=== PATIENT | female | born 1990 | race Hispanic/Latino ===

== ENCOUNTER 2019-10-05 18:01 | Emergency (ER) | payer MEDICAID, OTHER ==
[~2019-10-05 18:01] MED LIST: DOCU-116 PO; IBUP-2077 PO; IRON-6 PO
== END 2019-10-05 18:38 | disposition home or self-care (01) ==
LOC: EDH 18:01
DX: F41.1 Generalized anxiety disorder (principal)
CPT/HCPCS: 99281

== ENCOUNTER 2022-04-26 15:45 | Observation (INO) | payer MEDICAID ==
[~2022-04-26] VITALS: Ht 162.6 cm; Wt 88.0 kg
[2022-04-26 15:48] VITALS: BP 89/150
[2022-04-26 16:17] LABS: APPEARANCE,URINE Cloudy (CLEAR); BILIRUBIN,URINE Negative (NEGATIVE); COLOR,URINE Yellow (YELLOW); GLUCOSE, URINE (UA) Negative (NEGATIVE); KETONES,URINE Trace mg/dL (NEGATIVE); LEUKOCYTE ESTERASE ,URINE Negative (NEGATIVE); NITRATE,URINE Negative (NEGATIVE); OCCULT BLOOD,URINE Negative (NEGATIVE); PROTEIN,URINE Trace mg/dL (NEGATIVE)
[2022-04-26 16:37] LABS: BACTERIA,URINE Moderate /HPF (None Seen); MUCUS,URINE Moderate LPF (None Seen); RBC,URINE None Seen /HPF (0-1); WBC,URINE 0-1 /HPF (0-1)
== END 2022-04-26 17:20 | disposition home or self-care (01) ==
LOC: EDH 15:45 → LDH 15:46
PROVIDERS: ADMIT Obstetrics & Gynecology; ATTEND Obstetrics & Gynecology
DX: O62.9 Abnormality of forces of labor, unspecified (principal); O36.8130 Decreased fetal movements, third trimester, not applicable or unspecified; Z3A.37 37 weeks gestation of pregnancy; Z79.899 Other long term (current) drug therapy
CPT/HCPCS: 59025; 81001; 87088; G0378; G0379

== ENCOUNTER 2022-04-30 19:50 | Inpatient (IN) | payer MEDICAID ==
[~2022-04-30] VITALS: Ht 172.7 cm; Wt 89.4 kg
[2022-04-30 20:47] LABS: APPEARANCE,URINE Clear (CLEAR); BILIRUBIN,URINE Negative (NEGATIVE); COLOR,URINE Yellow (YELLOW); GLUCOSE, URINE (UA) Negative (NEGATIVE); KETONES,URINE Negative (NEGATIVE); LEUKOCYTE ESTERASE ,URINE Negative (NEGATIVE); NITRATE,URINE Negative (NEGATIVE); OCCULT BLOOD,URINE Negative (NEGATIVE); PH,URINE 6.5 (5.0-8.0); PROTEIN,URINE Negative (NEGATIVE); UROBILINOGEN,URINE 0.2 mg/dL (0.2-1.0)
[2022-04-30 20:56] LABS: AMPHET/METH SCREEN,URINE NEGATIVE (NEGATIVE); BARBITURATE SCREEN, URINE NEGATIVE (NEGATIVE); BENZODIAZEPINES SCREEN,URINE NEGATIVE (NEGATIVE); CANNABINOID SCREEN,URINE NEGATIVE (NEGATIVE); COCAINE SCREEN,URINE NEGATIVE (NEGATIVE); OPIATE SCREEN,URINE NEGATIVE (NEGATIVE); PHENCYCLIDINE SCREEN,URINE NEGATIVE (NEGATIVE)
[2022-04-30 21:00] VITALS: BP 130/78
[2022-04-30 21:16] LABS: HEMATOCRIT 32.4 % (36-48); MEAN CORPUSCULAR HEMOGLOBIN 26.3 pg (27.0-33.0); MEAN CORPUSCULAR HGB CONC 32.4 g/dL (32.0-36.0); RED CELL DISTRIBUTION WIDTH 13.8 % (11.0-15.5); WHITE BLOOD COUNT (AUTO) 11.5 K/uL (4.8-10.8)
[2022-04-30] MEDS: LACTATED RINGERS 1000ML 1,000 ML IV PRN (21:19)
[2022-04-30] MEDS ORDERED: AMPICILLIN 2GM+NS 100ML 100 ML IV SCH (21:30)
[2022-05-01] MEDS ORDERED: OXYTOCIN-LR 20 UNITS/1000 ML 1,000 ML IV SCH ×2 (00:30→05:00)
[2022-05-01] MEDS: LACTATED RINGERS 1000ML 1,000 ML IV PRN (01:24)
[2022-05-01] MEDS ORDERED: AMPICILLIN 1GM+NS 50ML 50 ML IV SCH (01:30)
[2022-05-01] MEDS ORDERED: BUTORPHANOL TARTRATE 2 MG/ML IVP PRN (01:30)
[2022-05-01] MEDS ORDERED: LIDOCAINE HCL 1% 20 ML VIAL ONE (01:55)
[2022-05-01] MEDS ORDERED: ACETAMINOPHEN WITH CODEINE 1 TAB TAB PO PRN (05:00)
[2022-05-01] MEDS ORDERED: ACETAMINOPHEN 325 MG TAB PO PRN (05:00)
[2022-05-01] MEDS ORDERED: WITCH HAZEL 1 PAD TP PRN (05:00)
[2022-05-01] MEDS ORDERED: MEASLES/MUMPS/RUBELLA VACCINE, LIVE 0.5 ML/VIAL SQ PRN (05:00)
[2022-05-01] MEDS ORDERED: DIPH,PERTUSS(ACELL),TET VAC/PF 0.5 ML VIAL IM PRN (05:00)
[2022-05-01] MEDS ORDERED: BENZOCAINE/LANOLIN/ALOE VERA 60 ML AEROSOL TP PRN (05:00)
[2022-05-01] MEDS ORDERED: LANOLIN 30GM OINTMENT TP PRN (05:00)
[2022-05-01] MEDS: IBUPROFEN 600 MG TABLET PO PRN (06:30)
[2022-05-01 07:40] VITALS: BP 115/56
[2022-05-01] MEDS: DOCUSATE SODIUM 100 MG CAP PO SCH ×2 (08:44→21:30)
[2022-05-01 09:41] LABS: RAPID PLASMA REAGIN NONREACTIVE (NONREACTIVE)
[2022-05-01 11:45] VITALS: BP 118/63
[2022-05-01 15:32] VITALS: BP 104/55
[2022-05-01 19:14] VITALS: BP 113/70
[2022-05-01 22:58] VITALS: BP 125/82
[2022-05-01] MEDS ORDERED: FERR-82 PO (22:58)
[2022-05-01] MEDS ORDERED: PREN1COM14 PO (22:58)
[2022-05-01] MEDS ORDERED: LEVO25CA4 PO (22:58)
[2022-05-02 03:10] VITALS: BP 124/82
[2022-05-02] MEDS: IBUPROFEN 600 MG TABLET PO PRN ×2 (03:25→10:04)
[2022-05-02 06:51] LABS: HEMATOCRIT 28.4 % (36-48); MEAN CORPUSCULAR HEMOGLOBIN 26.6 pg (27.0-33.0); MEAN CORPUSCULAR HGB CONC 32.7 g/dL (32.0-36.0); MEAN CORPUSCULAR VOLUME 81.1 fL (79-99); RED BLOOD CELL COUNT(AUTO) 3.5 MIL/uL (4.00-5.50); RED CELL DISTRIBUTION WIDTH 14.3 % (11.0-15.5); WHITE BLOOD COUNT (AUTO) 10.8 K/uL (4.8-10.8)
[2022-05-02 07:30] VITALS: BP 113/71
[2022-05-02] MEDS: DOCUSATE SODIUM 100 MG CAP PO SCH (10:02)
[2022-05-02] MEDS ORDERED: IBUP-2070 PO (10:30)
[2022-05-02 11:15] VITALS: BP 116/80
== END 2022-05-02 12:30 | disposition home or self-care (01) | DRG 560 ==
LOC: EDH 19:50 → OBSVTOIN 19:51 → LDH 19:51 → WSH 05-01 05:00
PROVIDERS: ADMIT Obstetrics & Gynecology; ATTEND Obstetrics & Gynecology
PROC: 10E0XZZ Delivery of Products of Conception, External Approach (ICD-10-PCS; principal; 2022-05-01)
DX: O80 Encounter for full-term uncomplicated delivery (principal); Z37.0 Single live birth; Z3A.38 38 weeks gestation of pregnancy
CPT/HCPCS: 36415; 59025; 80305; 81001; 81003; 85027; 86592; 86701; 86850; 86900; 86901; 87088; 87340; 87390; 96360; 96361; G0378; G0379; J0290; J0595; J2590; J7120

== ENCOUNTER 2024-01-14 17:57 | Emergency (ER) | payer BC, MEDICAID ==
[~2024-01-14] VITALS: Ht 162.6 cm; Wt 77.1 kg
[~2024-01-14 17:57] MED LIST changes: -DOCU-116 PO; +FERR-82 PO; +IBUP-2070 PO; -IBUP-2077 PO; -IRON-6 PO; +LEVO25CA4 PO; +PREN1COM14 PO
[2024-01-14 18:12] VITALS: BP 121/81; PULSE 85; RESP 14; O2SAT 100
[2024-01-14] MEDS: IBUPROFEN 800 MG TAB PO ONE (19:50)
[2024-01-14] MEDS ORDERED: IBUP-2070 PO (19:52)
== END 2024-01-14 20:00 | disposition home or self-care (01) ==
LOC: EDH 17:57
DX: M76.62 Achilles tendinitis, left leg (principal)
CPT/HCPCS: 73610

== ENCOUNTER 2024-10-26 20:54 | Emergency (ER) | payer BC ==
[~2024-10-26] VITALS: Ht 162.6 cm; Wt 81.2 kg
[2024-10-26 21:28] LABS: BASOPHILS # (AUTO) 0.07 K/uL (0.00-0.20); BASOPHILS % (AUTO) 0.5 % (0.0-5.0); EOSINOPHILS # (AUTO) 0.07 K/uL (0.00-0.70); EOSINOPHILS % (AUTO) 0.5 % (0.0-8.0); HEMATOCRIT 37.8 % (36-48); IMMATURE GRANULOCYTE ABSOLUTE 0.06 K/uL (0-1); LYMPHOCYTES # (AUTO) 3.1 K/uL (1.0-4.8); LYMPHOCYTES % (AUTO) 22.3 % (21.0-51.0); MEAN CORPUSCULAR HEMOGLOBIN 25.8 pg (27.0-33.0); MEAN CORPUSCULAR HGB CONC 32.5 g/dL (32.0-36.0); MEAN CORPUSCULAR VOLUME 79.4 fL (79-99); MONOCYTES # (AUTO) 0.8 K/uL (0.1-1.0); MONOCYTES % (AUTO) 5.5 % (3.0-13.0); NEUTROPHILS # (AUTO) 9.8 K/uL (1.8-7.7); NEUTROPHILS % (AUTO) 70.8 % (40.0-77.0); PLATELET COUNT (AUTO) 434 K/uL (130-400); RED BLOOD CELL COUNT(AUTO) 4.76 MIL/uL (4.00-5.50); RED CELL DISTRIBUTION WIDTH 14.1 % (11.0-15.5); WHITE BLOOD COUNT (AUTO) 13.8 K/uL (4.8-10.8)
[2024-10-26 21:36] LABS: APPEARANCE,URINE CLEAR (CLEAR); BILIRUBIN,URINE NEGATIVE (NEGATIVE); COLOR,URINE LIGHT-YELLOW (YELLOW); GLUCOSE, URINE (UA) NEGATIVE (NEGATIVE); KETONES,URINE NEGATIVE (NEGATIVE); LEUKOCYTE ESTERASE ,URINE NEGATIVE Leu/uL (NEGATIVE); MUCUS,URINE RARE LPF (None Seen); NITRATE,URINE NEGATIVE (NEGATIVE); OCCULT BLOOD,URINE SMALL (NEGATIVE); PROTEIN,URINE 10 mg/dL (NEGATIVE); SQUAMOUS EPITHELIAL CELL,UR FEW /HPF (0-2); UROBILINOGEN,URINE 0.2 mg/dL (0.2-1.0); WBC,URINE 0-1 /HPF (0-1)
[2024-10-26 21:39] LABS: HCG,QUALITATIVE URINE NEGATIVE (NEGATIVE)
[2024-10-26 21:40] LABS: CREATININE 0.8 mg/dL (0.5-1.0); POTASSIUM 3.6 mmol/L (3.5-5.1)
[2024-10-26 22:00] LABS: RAPID GROUP A STREP negative (NEGATIVE); SARS-CoV-2, RNA, NAAT NEGATIVE SARS CoV-2 (NEGATIVE)
[2024-10-26 22:06] LABS: INFLUENZA TYPE A Negative For Type A (NEGATIVE); INFLUENZA TYPE B Negative For Type B (NEGATIVE)
[2024-10-26] MEDS: 0.9%NACL 1000ML 1,000 ML IV ONE (22:09)
[2024-10-26] MEDS: PROCHLORPERAZINE 10MG/2ML INJ IV ONE (22:09)
[2024-10-26] MEDS: DiphenhydrAMINE HCL 50 MG/ML VIAL IV ONE (22:09)
[2024-10-26 22:55] VITALS: BP 136/74; PULSE 75; RESP 18; TEMP 98.8; O2SAT 100
[2024-10-26] MEDS ORDERED: DICL100G61 TP (22:59)
--- NOTE | 2024-10-26 22:59 | ERN ---
General Chief Complaint: Headache Stated Complaint: SEVERE HEADACHE, VOMITING Time Seen by MD: 20:55 Source: patient History of Present Illness Initial Comments PATIENT IS A 35-YEAR-OLD FEMALE COMING IN TO EVALUATED FOR LEFT-SIDED HEADACHE. PATIENT STATES THAT THE HEADACHE HAS BEEN ONGOING FOR A COUPLE OF DAYS. PATIENT STATES THAT THE PAIN BEGINS FROM THE TRAPEZIUS MUSCLE IN THE LEFT SIDE AND RADIATES TO THE LEFT SIDE OF THE HEAD. NO FEVER NO CHILLS. Allergies: Coded Allergies: No Known Allergies (Unverified Allergy, Unknown, 03/26/15) Home Meds Active Scripts Ibuprofen (Ibuprofen) 600 Mg Tablet, 600 MG PO TIDP PRN for PAIN, #7 TAB Prov:NEGRO LEVI 01/14/24 Reported Medications Ibuprofen (Ibuprofen) 600 Mg Tablet, 600 MG PO Q6H, TAB 05/02/22 Ferrous Sulfate (Iron) 325 Mg Tablet, 325 MG PO AM, TAB 05/01/22 Cmb#95/Iron/FA/Dha ( + Dha Combo Pack) 1 Each Combo..pkg, 1 EAC H PO AM, COMB.PKG 05/01/22 Levothyroxine Sodium (Levothyroxine) 25 Mcg Capsule, 25 MCG PO ACBKFST, CAP 05/01/22 Past Medical History Past Medical History: No Pertinent History Medical History Other: IRON Past Surgical History: None Surgical History Other: TUBAL LIGATIONS Female( History) LMP: Oct 13, 2024 : 4 Para: 3 Aborts: 0 ROS Dictation CONSTITUTIONAL: NO CHILLS, NO FEVER, NO WEAKNESS, NO DIAPHORESIS, NO MALAISE. HEAD/FACE: NO SIGNS OF TRAUMA. EENT: NO EYE PAIN, NO BLURRED VISION, NO TEARING, NO DOUBLE VISION, NO EAR PAIN, NO EAR DISCHARGE, NO NOSE PAIN, NO NASAL CONGESTION, NO THROAT PAIN, NO THROAT SWELLING, NO MOUTH PAIN. RESPIRATORY: NO COUGH, NO ORTHOPNEA, NO SOB, NO STRIDOR, NO WHEEZING. CARDIOVASCULAR: NO CHEST PAIN, NO EDEMA, NO PALPITATIONS, NO SYNCOPE. GASTROINTESTINAL/ABDOMINAL: NO ABDOMINAL PAIN, NO CONSTIPATION, NO DIARRHEA, NO NAUSEA, NO VOMITING. GENITOURINARY: NO ABNORMAL DISCHARGE, NO DYSURIA, NO FREQUENT URINATION, NO HEMATURIA. NO COMPLAINTS OF PAIN IN THE GENITALS. MUSCULOSKELETAL: NO BACK PAIN, NO GOUT, JOINT PAIN, NO JOINT SWELLING, MUSCLE PAIN, MUSCLE STIFFNESS, NECK PAIN. INTEGUMENTARY: NO CHANGE IN COLOR, NO CHANGE IN HAIR/NAILS, NO DRYNESS, NO LESION, NO LUMPS, NO RASH. NEUROLOGICAL/PSYCH: NO ANXIETY, NOT DEPRESSED, NO EMOTIONAL PROBLEM, NO HEADACHE, NO NUMBNESS, NO PRE-EXISTING DEFICIT, NO HISTORY OF SEIZURES, NO TREMORS, NO WEAKNESS. HEMATOLOGIC/LYMPHATIC: NOT ANEMIC, NO HISTORY OF BLOOD CLOTS, NO APPARENT BLEEDING, NO BRUISING, GLANDS NOT SWOLLEN. ALL SYSTEMS NEGATIVE, EXCEPT NOTED. Physical Exam Physical Exam Dictation VITAL SIGNS: REVIEWED. GENERAL APPEARANCE: ALERT, ORIENTED X3, NO ACUTE DISTRESS, OBESE. HEAD AND FACE: NON-TRAUMATIC. EYES: PERRL, PINK CONJUNCTIVAS, EYELID NO TRAUMA, ANTERIOR CHAMBER CLEAR. EARS: PINNAS INTACT AND NO SIGNS OF TRAUMA OR ERYTHEMA. EAR CANALS CLEAR AND NO DISCHARGE. TMS NO ERYTHEMA. NOSE: NO DISCHARGE, NO BLEEDING. OROPHARYNX: MOUTH NORMAL, TEETH NO CARIES, TONGUE PINK. PHARYNX CLEAR, NO ERYTHEMA. TONSILS NO EXUDATES, NO ABSCESSES NOTED. MUCOUS MEMBRANE MOIST. NECK: SUPPLE, NON-TENDER, NO THYROMEGALY, NO MASSES, NO JVD, NO BRUITS. BREAST: DEFERRED. CHEST: NO TENDERNESS, NO CREPITUS, NO PARADOXICAL MOVEMENT, NO RETRACTIONS. LUNGS: CLEAR, WELL-VENTILATED, SYMMETRIC, NO RALES, NO WHEEZING, NO RHONCHI, NO STRIDOR, GOOD BREATH SOUNDS BILATERALLY. HEART: REGULAR RATE, REGULAR RHYTHM, NO MURMUR, NO GALLOPS. VASCULAR: NO PERIPHERAL EDEMA. ABDOMEN: SOFT, POSITIVE BOWEL SOUNDS, NONDISTENDED, NO GUARDING, NONTENDER, NO REBOUND, NO MASSES NO HEPATOMEGALY, NO SPLENOMEGALY, NO RODRIGUEZ'S SIGN, NO HERNIAS. RECTAL: DEFERRED. GENITAL: DEFERRED. NEUROLOGICAL: NORMAL SPEECH, GROSS MOTOR FUNCTION INTACT, GROSS SENSORY FUNCTION INTACT. MUSCULOSKELETAL: NECK NONTENDER, FULL RANGE OF MOTION, BACK NONTENDER, FULL RANGE OF MOTION. EXTREMITIES: NONTENDER, FULL RANGE OF MOTION. LEFT TRAPEZIUS MUSCLE TENDERNESS ON PALPATION SKIN: COLOR PINK, DRY, NO TURGOR, NO RASH, NO LACERATIONS, NO ABRASIONS, NO CONTUSIONS. LYMPHATICS: DEFERRED. Results Laboratory and Microbiology Lab and Micro Result Laboratory Tests Test 10/26/24 21:16 10/26/24 21:20 Urine Color LIGHT-YELLOW (YELLOW) Urine Appearance CLEAR (CLEAR) Urine pH 7.0 (5.0-8.0) Urine Specific Hitchcock 1.016 (1.001-1.031) Urine Protein 10 mg/dL (NEGATIVE) H Urine Glucose (UA) NEGATIVE mg/dL (NEGATIVE) Urine Ketones NEGATIVE mg/dL (NEGATIVE) Urine Occult Blood SMALL (NEGATIVE) H Urine Nitrate NEGATIVE (NEGATIVE) Urine Bilirubin NEGATIVE mg/dL (NEGATIVE) Urine Urobilinogen 0.2 mg/dL (0.2-1.0) Urine Leukocyte Esterase NEGATIVE Jayde/uL Urine RBC 6-10 /HPF (0-1) H Urine WBC 0-1 /HPF (0-1) Urine Squamous Epithelial Cells FEW /HPF (0-2) Urine Bacteria None /HPF (None Seen) Urine HCG, Qualitative NEGATIVE (NEGATIVE) Influenza Type A Antigen Negative For Type A Influenza Type B Antigen Negative For Type B SARS-CoV-2, RNA, NAAT NEGATIVE SARS CoV-2 Group A Streptococcus Rapid negative (NEGATIVE) White Blood Count 13.8 K/uL (4.8-10.8) H Red Blood Count 4.76 MIL/uL (4.00-5.50) Hemoglobin 12.3 g/dL (12.0-16.0) Hematocrit 37.8 % (36-48) Mean Corpuscular Volume 79.4 fL (79-99) Mean Corpuscular Hemoglobin 25.8 pg (27.0-33.0) L Mean Corpuscular Hemoglobin Concent 32.5 g/dL (32.0-36.0) Red Cell Distribution Width 14.1 % (11.0-15.5) Platelet Count 434 K/uL (130-400) H Mean Platelet Volume 9.6 fL (7.5-10.5) Immature Granulocyte % (Auto) 0.4 % (0-1) Neutrophils (%) (Auto) 70.8 % (40.0-77.0) Lymphocytes (%) (Auto) 22.3 % (21.0-51.0) Monocytes (%) (Auto) 5.5 % (3.0-13.0) Eosinophils (%) (Auto) 0.5 % (0.0-8.0) Basophils (%) (Auto) 0.5 % (0.0-5.0) Neutrophils # (Auto) 9.8 K/uL (1.8-7.7) H Lymphocytes # (Auto) 3.1 K/uL (1.0-4.8) Monocytes # (Auto) 0.8 K/uL (0.1-1.0) Eosinophils # (Auto) 0.07 K/uL (0.00-0.70) Basophils # (Auto) 0.07 K/uL (0.00-0.20) Absolute Immature Granulocyte (auto 0.06 K/uL (0-1) Nucleated Red Blood Cells 0.0 % (0.0-0.19) Sodium Level 131 mmol/L (136-145) L Potassium Level 3.6 mmol/L (3.5-5.1) Chloride Level 96 mmol/L (101-111) L Carbon Dioxide Level 33 mmol/L (21-32) H Blood Urea Nitrogen 16 mg/dL (7-18) Creatinine 0.8 mg/dL (0.5-1.0) Glomerular Filtration Rate Calc 100 mL/min (>90) Random Glucose 105 mg/dL (70-105) Total Calcium 9.2 mg/dL (8.5-10.1) Labs Reviewed?: Yes MDM MDM: DIFFERENTIAL DIAGNOSIS: TENSION HEADACHE, MIGRAINE, PATIENT IS A 35-YEAR-OLD FEMALE, KNOWN TO BE EVALUATED FOR LEFT-SIDED TRAPEZIUS MUSCLE TENDERNESS ON PALPATION THAT RADIATES UP TO THE LEFT OCCIPITAL REGION OF THE HEAD. LABORATORY WORKUP NEGATIVE FOR ACUTE FINDINGS. PATIENT RECEIVED THE HEADACHE COCKTAIL STATES SHE FEELS MUCH BETTER HIS RATE TO BE DISCHARGED. PATIENT BE DISCHARGED WITH A DIAGNOSIS OF TENSION HEADACHES. ED Course Orders Procedure Category Date Status Time Cbc With Differential LAB 10/26/24 Complete 21:01 Basic Metabolic Panel LAB 10/26/24 Complete 21:01 Urinalysis LAB 10/26/24 Complete W/Microscopic 21: ,Urine Test LAB 10/26/24 Complete 21:01 Rapid (Group A Strep) LAB 10/26/24 Complete 21:01 Influenza Type A & B, LAB 10/26/24 Complete Rapid 21:01 Covid Rna Naat LAB 10/26/24 Complete 21:01 0.9%Nacl 1000ml (Ns PHA 10/26/24 Complete 1000ml) 21:30 Diphenhydramine Hcl PHA 10/26/24 Complete (Benadryl Inj) 21:30 Prochlorperazine PHA 10/26/24 Complete 10mg/2ml Inj 21:30 Current Medications Medications (Trade) Dose Ordered Sig/Alvina Route PRN Reason Start Time Stop Time Status Last Admin Dose Admin Diphenhydramine HCl (BENAdryl INJ) 25 mg ONCE ONCE IV 10/26/24 21:30 10/26/24 21:31 DC 10/26/24 22:09 Prochlorperazine Edisylate (Compazine 10mg/ 2ml Inj) 10 mg ONCE ONCE IV 10/26/24 21:30 10/26/24 21:31 DC 10/26/24 22:09 Sodium Chloride 1,000 ml @ 0 mls/hr ONCE ONCE IV 10/26/24 21:30 10/26/24 21:31 DC 10/26/24 22:09 Vital Signs Date Time Temp Pulse Resp B/P (MAP) Pulse Ox O2 Delivery O2 Flow Rate FiO2 10/26/24 22:55 98.8 75 18 136/74 100 Room Air* 0 21 10/26/24 21:10 97.3 16 20 113/73 100 Room Air DX & DISP Disposition: Discharge Departure Impression: Primary Impression: Tension headache Condition: Stable Scripts Diclofenac Sodium (Arthritis Pain) 1 % Gel..gram. 100 GM TP BID for 7 Days, #1 TUBE Prov: LISA CROWLEY MD 10/26/24 Additional Instructions: DISCHARGE HOME. REST. FOLLOW UP WITH PRIMARY CARE IN 24 HOURS. RETURN TO THE ER FOR ANY ACUTE CHANGE. PATIENT WAS ALSO ADVISED TO FOLLOW-UP WITH PRIMARY CARE PHYSICIAN IN 1 TO 2 DAYS FOR CONTINUED MONITORING. ALL INSTRUCTIONS WERE GIVEN TO LAYMANS TERM AND PATIENT AGREEABLE TO DISCHARGE AND PROPER FOLLOW-UP. Referrals: REJI REDMOND (PCP) Time of Disposition: 22:58 LISA CROWLEY MD Oct 26, 2024 22:59
== END 2024-10-26 23:12 | disposition home or self-care (01) ==
LOC: EDH 20:54
DX: G44.209 Tension-type headache, unspecified, not intractable (principal); Z20.822 Contact with and (suspected) exposure to COVID-19; Z79.899 Other long term (current) drug therapy; Z98.51 Tubal ligation status
CPT/HCPCS: 99284; 96374; 87635; 96361; 96375; 80048; 85025; 87880; 87804 ×2; 81001; 81025; 36415; J1200; J7030; J0780